=== PATIENT | male | born 1935 | race Caucasian/White ===

== ENCOUNTER 2017-01-31 16:41 | Inpatient (IN) | payer OTHER, MEDICAID ==
[~2017-01-31] VITALS: Ht 172.7 cm; Wt 104.5 kg
[~2017-01-31 16:41] MED LIST: ADVAIR DISKUS 51 AER INH; AMLODIPINE BES10 MG PO; ARTOS OU; AUG500 PO; CARVEDILOL3.125 M1 PO; DEB AU; DOC-Q-LACE100 MG PO; ECO81 PO; FLO4 PO; GABAPENTIN300 M2 PO; HUMULIN R100 U/1 M1 SC; HYDRALAZINE HY100 MG PO; IBUPROFEN400 MG PO; LAC PO; LASIX20 MG PO; LEVEMIR100 U/M1 SQ; PROAIR HFA0.09 MG/A1 INH; PROS5 PO; SPIRIVA18 MC1 INH; THERAGRAN-M1 TA4 PO; TYL325 PO; ZOC10 PO; ZOS3PM IV
[2017-01-31 19:10] LABS: PLATELET COUNT 197 x10^3mcL (130-400)
[2017-01-31 19:34] LABS: ALKALINE PHOSPHATASE 126 U/L (46-116); ALT/SGPT 70 U/L (16-63); AMYLASE 81 U/L (25-115); AST/SGOT 16 U/L (15-37); BILIRUBIN TOTAL 0.9 mg/dL (0.20-1.00); CALCIUM 8.1 mg/dL (8.5-10.1); CARBON DIOXIDE 21.1 mmol/L (21-32); CHLORIDE SERUM 102 mmol/L (98-107); CREATININE SERUM 3.4 mg/dL (0.7-1.3); GLUCOSE SERUM 296 mg/dL (74-106); LIPASE 388 IU/L (73-393); POTASSIUM SERUM 4.1 mmol/L (3.5-5.1); SODIUM SERUM 136 mmol/L (136-145); T4(THYROXINE) 4.8 ug/dL (4.7-13.3); TOTAL PROTEIN, SERUM 6.9 g/dL (6.4-8.2)
[2017-01-31 19:39] LABS: ALBUMIN 2.8 g/dL (3.4-5.0); CHOLESTEROL 122 mg/dL (<200); HDL CHOLESTEROL 21 mg/dL (40-60)
[2017-01-31 19:41] LABS: BASOPHIL % 0 % (0-2); RED CELL DISTRIBUTION WIDTH 16.3 % (11.5-14.5)
[2017-01-31 20:19] LABS: UA SPECIFIC GRAVITY 1.025 (1.005-1.035); microscopic required? YES; urine erythrocyte 1+ (NEGATIVE)
[2017-01-31 20:54] LABS: AMPHETAMINE QUAL UR NONE DETECTED (NEG <=1000)
[2017-01-31 22:36] VITALS: BP 139/83
[2017-01-31 23:45] LABS: MAGNESIUM 2.9 mg/dL (1.8-2.4); PHOSPHOROUS 4.3 mg/dL (2.5-4.9)
[2017-02-01] VITALS (11 sets, daily range): BP systolic 99–149; BP diastolic 64–89
[2017-02-01 07:08] LABS: PLATELET COUNT 174 x10^3mcL (130-400)
[2017-02-01 07:34] LABS: CALCIUM 7.8 mg/dL (8.5-10.1); CARBON DIOXIDE 17.3 mmol/L (21-32); CHLORIDE SERUM 105 mmol/L (98-107); CREATININE SERUM 2.9 mg/dL (0.7-1.3); GLUCOSE SERUM 252 mg/dL (74-106); MAGNESIUM 2.5 mg/dL (1.8-2.4); PHOSPHOROUS 5.4 mg/dL (2.5-4.9); POTASSIUM SERUM 4.7 mmol/L (3.5-5.1); SODIUM SERUM 137 mmol/L (136-145)
[2017-02-01 08:34] LABS: BASOPHIL % 0 % (0-2); RED CELL DISTRIBUTION WIDTH 16.3 % (11.5-14.5)
[2017-02-02] VITALS (7 sets, daily range): BP systolic 87–104; BP diastolic 45–70
[2017-02-02 07:25] LABS: PLATELET COUNT 197 x10^3mcL (130-400)
[2017-02-02 08:28] LABS: RED CELL DISTRIBUTION WIDTH 16.3 % (11.5-14.5)
[2017-02-02 09:03] LABS: CALCIUM 7.8 mg/dL (8.5-10.1); CARBON DIOXIDE 15.7 mmol/L (21-32); CHLORIDE SERUM 106 mmol/L (98-107); GLUCOSE SERUM 60 mg/dL (74-106); MAGNESIUM 2.7 mg/dL (1.8-2.4); PHOSPHOROUS 7.9 mg/dL (2.5-4.9); SODIUM SERUM 137 mmol/L (136-145)
[2017-02-02 09:14] LABS: POTASSIUM SERUM 5.7 mmol/L (3.5-5.1)
[2017-02-02 10:06] LABS: BAND NEUTROPHIL 0 % (0-10); BASOPHIL 0 % (0-2); MONOCYTE 5 % (0-7); SEGMENTED NEUTROPHILS 92 % (37-75)
[2017-02-02 10:07] LABS: rbc morphology (normal/abnorm) ABNORMAL (NORMAL)
[2017-02-02 10:08] LABS: burr cell (echinocyte) 1+; ovalocyte/elliptocyte 1+
[2017-02-03] VITALS (16 sets, daily range): BP systolic 71–118; BP diastolic 44–85
[2017-02-03 02:19] LABS: CALCIUM 7.4 mg/dL (8.5-10.1); CARBON DIOXIDE 13.4 mmol/L (21-32); CHLORIDE SERUM 103 mmol/L (98-107); GLUCOSE SERUM 213 mg/dL (74-106); POTASSIUM SERUM 4.7 mmol/L (3.5-5.1); SODIUM SERUM 134 mmol/L (136-145)
[2017-02-03 02:29] LABS: CREATININE SERUM 4.6 mg/dL (0.7-1.3)
[2017-02-03 05:45] LABS: CALCIUM 7.2 mg/dL (8.5-10.1); CARBON DIOXIDE 18.7 mmol/L (21-32); CHLORIDE SERUM 104 mmol/L (98-107); GLUCOSE SERUM 152 mg/dL (74-106); MAGNESIUM 2.5 mg/dL (1.8-2.4); PHOSPHOROUS 8.5 mg/dL (2.5-4.9); POTASSIUM SERUM 4.5 mmol/L (3.5-5.1); SODIUM SERUM 137 mmol/L (136-145)
[2017-02-03 05:52] LABS: PLATELET COUNT 174 x10^3mcL (130-400)
[2017-02-03 06:06] LABS: CREATININE SERUM 4.6 mg/dL (0.7-1.3)
[2017-02-03 06:16] LABS: BASOPHIL % 0 % (0-2); RED CELL DISTRIBUTION WIDTH 16.8 % (11.5-14.5)
[2017-02-03 08:06] LABS: CHLORIDE SERUM 104 mmol/L (98-107); GLUCOSE SERUM 85 mg/dL (74-106); MAGNESIUM 2.4 mg/dL (1.8-2.4); PHOSPHOROUS 8.4 mg/dL (2.5-4.9); POTASSIUM SERUM 4.1 mmol/L (3.5-5.1); SODIUM SERUM 136 mmol/L (136-145)
[2017-02-03 08:08] LABS: CREATININE SERUM 4.6 mg/dL (0.7-1.3)
[2017-02-03 12:35] LABS: CALCIUM 6.8 mg/dL (8.5-10.1); CARBON DIOXIDE 16.7 mmol/L (21-32); CHLORIDE SERUM 103 mmol/L (98-107); GLUCOSE SERUM 144 mg/dL (74-106); MAGNESIUM 2.3 mg/dL (1.8-2.4); PHOSPHOROUS 8.7 mg/dL (2.5-4.9); POTASSIUM SERUM 4.6 mmol/L (3.5-5.1); SODIUM SERUM 134 mmol/L (136-145)
[2017-02-03 12:44] LABS: CREATININE SERUM 4.7 mg/dL (0.7-1.3)
[2017-02-03 17:11] LABS: CALCIUM 6.9 mg/dL (8.5-10.1); CHLORIDE SERUM 104 mmol/L (98-107); GLUCOSE SERUM 237 mg/dL (74-106); MAGNESIUM 2.2 mg/dL (1.8-2.4); PHOSPHOROUS 8.3 mg/dL (2.5-4.9); POTASSIUM SERUM 4.6 mmol/L (3.5-5.1); SODIUM SERUM 135 mmol/L (136-145)
[2017-02-03 17:15] LABS: CREATININE SERUM 4.5 mg/dL (0.7-1.3)
[2017-02-04] VITALS (18 sets, daily range): BP systolic 88–126; BP diastolic 53–92
[2017-02-04 05:18] LABS: PLATELET COUNT 156 x10^3mcL (130-400)
[2017-02-04 05:34] LABS: CALCIUM 6.6 mg/dL (8.5-10.1); CARBON DIOXIDE 22.4 mmol/L (21-32); CHLORIDE SERUM 102 mmol/L (98-107); GLUCOSE SERUM 202 mg/dL (74-106); POTASSIUM SERUM 4.5 mmol/L (3.5-5.1); SODIUM SERUM 134 mmol/L (136-145)
[2017-02-04 05:36] LABS: CREATININE SERUM 4.9 mg/dL (0.7-1.3)
[2017-02-04 05:45] LABS: BASOPHIL % 0 % (0-2); RED CELL DISTRIBUTION WIDTH 16.8 % (11.5-14.5)
[2017-02-05] VITALS (16 sets, daily range): BP systolic 84–129; BP diastolic 34–79
[2017-02-05 06:06] LABS: ALKALINE PHOSPHATASE 90 U/L (46-116); ALT/SGPT 48 U/L (16-63); AST/SGOT 18 U/L (15-37); BILIRUBIN TOTAL 0.49 mg/dL (0.20-1.00); CARBON DIOXIDE 17.7 mmol/L (21-32); CHLORIDE SERUM 102 mmol/L (98-107); GLUCOSE SERUM 179 mg/dL (74-106); POTASSIUM SERUM 4.3 mmol/L (3.5-5.1); SODIUM SERUM 132 mmol/L (136-145)
[2017-02-05 06:35] LABS: ALBUMIN 1.6 g/dL (3.4-5.0); CREATININE SERUM 4.7 mg/dL (0.7-1.3); TOTAL PROTEIN, SERUM 4.7 g/dL (6.4-8.2)
[2017-02-05 16:09] LABS: PLATELET COUNT 153 x10^3mcL (130-400)
[2017-02-05 16:10] LABS: BASOPHIL % 0 % (0-2); RED CELL DISTRIBUTION WIDTH 16.6 % (11.5-14.5)
[2017-02-06] VITALS (18 sets, daily range): BP systolic 83–130; BP diastolic 26–74
[2017-02-06 05:23] LABS: CALCIUM 7.4 mg/dL (8.5-10.1); CHLORIDE SERUM 99 mmol/L (98-107); GLUCOSE SERUM 176 mg/dL (74-106); PHOSPHOROUS 7.1 mg/dL (2.5-4.9); SODIUM SERUM 134 mmol/L (136-145)
[2017-02-06 05:34] LABS: CREATININE SERUM 4.7 mg/dL (0.7-1.3)
[2017-02-06 05:39] LABS: PLATELET COUNT 140 x10^3mcL (130-400)
[2017-02-06 05:40] LABS: BASOPHIL % 0 % (0-2); RED CELL DISTRIBUTION WIDTH 16.6 % (11.5-14.5)
[2017-02-07] VITALS (17 sets, daily range): BP systolic 95–146; BP diastolic 2–85
[2017-02-07 05:17] LABS: PLATELET COUNT 143 x10^3mcL (130-400)
[2017-02-07 05:48] LABS: RED CELL DISTRIBUTION WIDTH 16.1 % (11.5-14.5)
[2017-02-07 05:49] LABS: BASOPHIL % 0 % (0-2)
[2017-02-07 05:55] LABS: CALCIUM 7.5 mg/dL (8.5-10.1); CARBON DIOXIDE 27.5 mmol/L (21-32); CHLORIDE SERUM 97 mmol/L (98-107); GLUCOSE SERUM 149 mg/dL (74-106); MAGNESIUM 1.9 mg/dL (1.8-2.4); PHOSPHOROUS 6.9 mg/dL (2.5-4.9); SODIUM SERUM 136 mmol/L (136-145)
[2017-02-07 06:03] LABS: CREATININE SERUM 4.7 mg/dL (0.7-1.3)
[2017-02-08] VITALS (19 sets, daily range): BP systolic 79–108; BP diastolic 48–69
[2017-02-08 05:43] LABS: PLATELET COUNT 161 x10^3mcL (130-400)
[2017-02-08 06:00] LABS: CALCIUM 7.4 mg/dL (8.5-10.1); CARBON DIOXIDE 33.6 mmol/L (21-32); CHLORIDE SERUM 97 mmol/L (98-107); GLUCOSE SERUM 162 mg/dL (74-106); PHOSPHOROUS 6.9 mg/dL (2.5-4.9); POTASSIUM SERUM 3.5 mmol/L (3.5-5.1); SODIUM SERUM 138 mmol/L (136-145)
[2017-02-08 06:06] LABS: BASOPHIL % 0 % (0-2); CREATININE SERUM 4.6 mg/dL (0.7-1.3); RED CELL DISTRIBUTION WIDTH 15.9 % (11.5-14.5)
[2017-02-08 13:19] LABS: IRON 17 ug/dL (65-170); TOTAL IRON BINDING CAPACITY 116 ug/dL (250-450)
[2017-02-08 13:20] LABS: RED BLOOD CELLS 3.61 M/mm3 (4.52-5.90)
[2017-02-09] VITALS (16 sets, daily range): BP systolic 79–120; BP diastolic 46–5912
[2017-02-09 06:03] LABS: PLATELET COUNT 168 x10^3mcL (130-400)
[2017-02-09 06:14] LABS: BASOPHIL % 0 % (0-2)
[2017-02-09 06:37] LABS: ALKALINE PHOSPHATASE 95 U/L (46-116); ALT/SGPT 19 U/L (16-63); AST/SGOT 20 U/L (15-37); CALCIUM 7.2 mg/dL (8.5-10.1); CARBON DIOXIDE 34.3 mmol/L (21-32); CHLORIDE SERUM 94 mmol/L (98-107); GLUCOSE SERUM 124 mg/dL (74-106); PHOSPHOROUS 7.8 mg/dL (2.5-4.9); POTASSIUM SERUM 3.9 mmol/L (3.5-5.1); SODIUM SERUM 138 mmol/L (136-145)
[2017-02-09 06:56] LABS: ALBUMIN 1.6 g/dL (3.4-5.0)
[2017-02-10] VITALS (15 sets, daily range): BP systolic 77–129; BP diastolic 50–68; Ht 172.7 cm; Wt 104.5 kg
[2017-02-10 05:56] LABS: BASOPHIL % 0.1 % (0-2); PLATELET COUNT 174 x10^3mcL (130-400)
[2017-02-10 05:57] LABS: RED CELL DISTRIBUTION WIDTH 15.9 % (11.5-14.5)
[2017-02-10 06:17] LABS: CALCIUM 7.5 mg/dL (8.5-10.1); CARBON DIOXIDE 30.8 mmol/L (21-32); CHLORIDE SERUM 96 mmol/L (98-107); GLUCOSE SERUM 141 mg/dL (74-106); PHOSPHOROUS 7.6 mg/dL (2.5-4.9); POTASSIUM SERUM 3.5 mmol/L (3.5-5.1); SODIUM SERUM 137 mmol/L (136-145)
[2017-02-10 06:19] LABS: CREATININE SERUM 4.9 mg/dL (0.7-1.3)
[2017-02-11 03:36] VITALS: BP 113/65
[2017-02-11 06:08] LABS: BASOPHIL % 0.1 % (0-2); CHLORIDE SERUM 95 mmol/L (98-107); GLUCOSE SERUM 125 mg/dL (74-106); PHOSPHOROUS 7.8 mg/dL (2.5-4.9); PLATELET COUNT 169 x10^3mcL (130-400); POTASSIUM SERUM 3.3 mmol/L (3.5-5.1); SODIUM SERUM 139 mmol/L (136-145)
[2017-02-11 06:10] LABS: CREATININE SERUM 4.8 mg/dL (0.7-1.3)
[2017-02-11 06:13] LABS: RED CELL DISTRIBUTION WIDTH 16.3 % (11.5-14.5)
[2017-02-11 08:10] VITALS: BP 111/61
[2017-02-11 12:10] VITALS: BP 103/72
[2017-02-11 16:30] VITALS: BP 90/65
[2017-02-11 22:35] VITALS: BP 114/64
[2017-02-12 03:46] LABS: microscopic required? YES; urine erythrocyte 1+ (NEGATIVE)
[2017-02-12 05:36] VITALS: BP 112/69
[2017-02-12 07:38] LABS: BASOPHIL % 0.3 % (0-2); PLATELET COUNT 177 x10^3mcL (130-400)
[2017-02-12 07:44] LABS: RED CELL DISTRIBUTION WIDTH 16.2 % (11.5-14.5); rbc morphology (normal/abnorm) ABNORMAL (NORMAL)
[2017-02-12 08:23] LABS: CALCIUM 7.9 mg/dL (8.5-10.1); CARBON DIOXIDE 35.1 mmol/L (21-32); CHLORIDE SERUM 94 mmol/L (98-107); GLUCOSE SERUM 134 mg/dL (74-106); POTASSIUM SERUM 3.5 mmol/L (3.5-5.1); SODIUM SERUM 140 mmol/L (136-145)
[2017-02-12 09:34] VITALS: BP 115/68
[2017-02-12 13:12] VITALS: BP 94/58
[2017-02-12 17:11] VITALS: BP 102/75
[2017-02-12 21:02] VITALS: BP 102/66
[2017-02-13 05:14] VITALS: BP 124/64
== END 2017-02-13 08:10 | disposition expired | DRG 870 ==
LOC: ED 16:41 → IC 21:02 → EDSEX 21:02 → DU 21:02 → EDBEDREQ 21:04 → DU 22:22 → IC 02-03 03:46 → DU 02-11 22:01
PROVIDERS: Emergency Medicine; Family Medicine; Internal Medicine; Internal Medicine Cardiovascular Disease; Student in an Organized Health Care Education/Training Program
PROC: 5A1955Z Respiratory Ventilation, Greater than 96 Consecutive Hours (ICD-10-PCS; principal; 2017-02-03)
PROC: 0BH17EZ Insertion of Endotracheal Airway into Trachea, Via Natural or Artificial Opening (ICD-10-PCS; 2017-02-03)
PROC: 05HM33Z Insertion of Infusion Device into Right Internal Jugular Vein, Percutaneous Approach (ICD-10-PCS; 2017-02-03)
PROC: 5A12012 Performance of Cardiac Output, Single, Manual (ICD-10-PCS; 2017-02-13)
PROC: 0BH17EZ Insertion of Endotracheal Airway into Trachea, Via Natural or Artificial Opening (ICD-10-PCS; 2017-02-13)
DX: A41.9 Sepsis, unspecified organism (principal); J69.0 Pneumonitis due to inhalation of food and vomit; J96.01 Acute respiratory failure with hypoxia; N17.0 Acute kidney failure with tubular necrosis; I50.43 Acute on chronic combined systolic (congestive) and diastolic (congestive) heart failure; E43 Unspecified severe protein-calorie malnutrition; N39.0 Urinary tract infection, site not specified; E87.4 Mixed disorder of acid-base balance; R44.3 Hallucinations, unspecified; J44.1 Chronic obstructive pulmonary disease with (acute) exacerbation; R65.20 Severe sepsis without septic shock; K52.9 Noninfective gastroenteritis and colitis, unspecified; I48.91 Unspecified atrial fibrillation; E83.42 Hypomagnesemia; E87.6 Hypokalemia; E11.65 Type 2 diabetes mellitus with hyperglycemia; E11.51 Type 2 diabetes mellitus with diabetic peripheral angiopathy without gangrene; N18.9 Chronic kidney disease, unspecified; N28.1 Cyst of kidney, acquired; N40.0 Benign prostatic hyperplasia without lower urinary tract symptoms; D50.9 Iron deficiency anemia, unspecified; Z95.0 Presence of cardiac pacemaker; Z87.891 Personal history of nicotine dependence; Z77.22 Contact with and (suspected) exposure to environmental tobacco smoke (acute) (chronic); Z68.27 Body mass index [BMI] 27.0-27.9, adult; Z79.4 Long term (current) use of insulin; Z79.82 Long term (current) use of aspirin; Z91.14 Patient's other noncompliance with medication regimen
CPT/HCPCS: 36556; 36600; 83880; 94150; A4628; C9113; J0132; J0171; J0282; J0330; J0610; J1160; J1250; J1642; J1644; J1815; J1940; J1956; J2060; J2250; J2270; J2405; J2543; J2916; J2930; J3480; J3490; J7030; J7040; J7050; J7613; J7620; J7626; J7644; P9047; Q0092